=== PATIENT | male | born 1940 | race African-American/Black ===

== ENCOUNTER 2019-10-04 22:20 | Inpatient (IN) | payer MEDICARE, BC, SELFPAY ==
[2019-10-04] VITALS (7 sets, daily range): BP systolic 144–192; BP diastolic 82–113; PULSE 80–97; RESP 19–27; TEMP 36.7; O2SAT 95–98
--- NOTE | ~2019-10-04 | XR_ITS ---
EXAMINATION: XR chest 1V portable EXAM DATE: 10/04/2019 23:07 INDICATION: Shortness of air. TECHNIQUE: Portable AP frontal chest x-ray was obtained. There is no prior study for comparison. FINDINGS: There is patchy ill-defined bilateral airspace disease with some more confluent regions of opacity at the left lung base. Acute lung injury from COVID 19 should be inserted/excluded. There may be a small left pleural effusion. The simba catheter has been accessed. Heart is within normal size limits. There is aortic arteriosclerosis. IMPRESSION: Patchy ill-defined bilateral but left basilar predominant airspace disease probably acut e infectious process, edema less likely given normal heart size. Reviewed, dictated and finalized at location G. IMPRESSION: Patchy ill-defined bilateral but left basilar predominant airspace disease probably acute infectious process, edema less likely given normal hear t size.
--- NOTE | ~2019-10-04 | US_ITS ---
EXAMINATION: US carotid duplex BI DATE: 10/05/2019 17:02 INDICATION: Carotid bruit TECHNIQUE: Grayscale, color Doppler, and pulsed Doppler images of the cervical carotid arteries were obtained. The degree of vessel stenosis is placed in one of the following categories: normal, <50%, 5 0-69%, >=70% but less than near-occlusion, near-occlusion, or total occlusion. Note that percent sten osis relative to normal distal artery lumen diameter is indirectly measured from velocity measurement s as described by Meet, et al. Radiology 2003; 229:340-346. COMPARISON: None. FINDINGS: Several premature atrial complexes are noted. RIGHT: The right common carotid artery (CCA) peak systolic velocity (PSV) is 95 cm/s. The right internal car otid artery (ICA) PSV is 131 cm/s. The right ICA end-diastolic velocity (EDV) is 29 cm/s. The right I CA/CCA PSV ratio is 1.4. Grayscale and color Doppler images yield an estimate of 50-69% diameter redu ction from plaque in the ICA. The external carotid artery (ECA) PSV is 141 cm/s. There is antegrade f low in the right vertebral artery. LEFT: The left CCA PSV is 114 cm/s. The left ICA PSV is 121 cm/s. The left ICA EDV is 11 cm/s. The left ICA /CCA PSV ratio is 1.1. Grayscale and color Doppler images yield an estimate of less than 50% diameter reduction from plaque in the ICA. The ECA PSV is 91 cm/s. There is antegrade flow in the left verteb ral artery. IMPRESSION: 1. 50-69% stenosis in the right internal carotid artery. 2. <50% stenosis in the left internal carotid artery. Reviewed, dictated and finalized at location A.
--- NOTE | ~2019-10-04 | CT_ITS ---
EXAMINATION: CTA chest PE protocol DATE: 10/05/2019 19:23 INDICATION: Pulmonary hypertension, elevated troponin, history of colon cancer TECHNIQUE: Computed tomography angiography (CTA) of the chest was performed with 100 mL Omnipaque-350 intravenous contrast timed to evaluate the pulmonary arteries. Coronal maximum intensity projection 3D-reconstructions were created by the technologist. The dose-length product (DLP) was 582.46 mGy-cm. Automated exposure control and iterative reconstruction technique were employed. COMPARISON: None. FINDINGS: The pulmonary arteries are well-opacified. No pulmonary embolism is identified. There are s mall pleural effusions. There is moderate emphysema. Mild dependent atelectasis is noted. No pneumoth orax is seen. There is right hilar lymphadenopathy. Calcified bilateral hilar and mediastinal lymph n odes are consistent with old granulomatous disease. The heart size is normal. A right internal jugula r Port-A-Cath ends with its tip in the distal superior vena cava. Hypoattenuating lesions of the live r measure up to 1.5 cm in the right hepatic lobe, likely cysts. Punctate calcifications in an otherwi se normal spleen likely represent healed granulomatous disease. IMPRESSION: 1. No pulmonary embolism. 2. Small pleural effusions. 3. Right hilar lymphadenopathy, reactive versus metastatic. 4. Moderate emphysema. Reviewed, dictated and finalized at location A.
--- NOTE | 2019-10-04 22:25 | ECG_ITS ---
Measurements Intervals [place] Rate: 98 P: -83 OR: 145 QRS: 18 QRSD: 106 T: 43 QT: 350 QTc: 447 Interpretive Statements SINUS RHYTHM FREQUENT ATRIAL PREMATURE COMPLEXES EARLY PRECORDIAL R/S TRANSITION BASELINE WANDER- V2-V6 BORDERLINE ECG Electronically Signed On 10-05-2019 7:11:39 CDT by Alonso Ascencio D.O.
[2019-10-04 22:39] LABS: PCO2 ABG 36.6 mmHg (35.0-45.0); pH ABG 7.396 (7.350-7.450)
[2019-10-04 22:41] LABS: Base Excess ABG -2.4 mEq/l (+/-2.0); PO2 ABG 41.9 mmHg (80.0-100.0)
[2019-10-04 22:42] LABS: Oxygen Saturation ABG 77.7 % (95.0-100.0)
[2019-10-04 22:43] LABS: Alveolar/Arterial O2 Gradient 490.1 mmHg; Oxyhemoglobin 73.3 % THb (90.0-100.0); Total Hemoglobin 13.6 g/dL (12.0-18.0)
[2019-10-04 22:44] LABS: Carboxyhemoglobin 0.8 % THb (0-2.0); Device OTHER DEVICE; Fractional Inspired Oxygen 80 %; Methemoglobin ABG 0.2 %THb (0-1.5); Modified Allen's Test Pass; PO2 FiO2 Ratio Arterial Blood 0.52 %; Reduced Hemoglobin 25.7 %THb (0-5.0); Site Drawn RIGHT RADIAL
[2019-10-04 23:08] LABS: Basophils Percent Auto 0.2 % (0.2-1.2); Eosinophils Absolute Auto 0.2 K/mm3 (0-0.3); Eosinophils Percent Auto 1.3 % (0-4.4); Hematocrit 39.8 % (42.0-52.0); Hemoglobin 12.7 g/dL (14.0-18.0); Immature Granulocyte Absolute 0.04 K/mm3 (0.00-0.031); Immature Granulocyte Percent A 0.3 % (0-0.5); Lymphocytes Percent Auto 8.3 % (18.3-44.2); Mean Corpuscular HGB Conc 31.9 g/dl (32-36); Mean Corpuscular Hemoglobin 25.8 pg (26-34); Mean Corpuscular Volume 80.7 fl (80-100); Mean Platelet Volume 10.7 fl (7.4-10.4); Monocytes Absolute Auto 0.9 K/mm3 (0.1-0.6); Monocytes Percent Auto 7.3 % (2.6-8.5); Neutrophils Percent Auto 82.6 % (45.5-73.1); Platelet Count Result 200 k/mm3 (150-375); Red Blood Count 4.93 M/mm3 (4.6-6.20); Red Cell Distribution Width 17.9 % (11.5-14.5); White Blood Count 12.1 K/mm3 (4.5-10.0)
[2019-10-04 23:14] LABS: INR 1.3; Prothrombin Time 15.4 Seconds (11.1-14.7)
[2019-10-04 23:15] LABS: Blood Urea Nitrogen 20 mg/dL (9-20); Calcium 9.9 mg/dL (8.4-10.2); Carbon Dioxide 23 mmol/L (22-30); Chloride 109 mmol/L (98-107); Estimated CRCL calculation 45 ml/min; Estimated Glomerular Filt Rate > 60; Glucose 116 mg/dL (75-110); Partial Thromboplastin Time 32.6 SECONDS (22.3-36.8); Potassium 3.9 mmol/L (3.4-5.0); Sodium 141 mmol/L (137-145)
--- NOTE | 2019-10-04 23:18 | ED.SOB ---
HPI - SOB/Dyspnea General Chief Complaint: Shortness of Breath/Dyspnea Stated Complaint: sob History of Present Illness HPI Narrative: Patient is a 79-year-old male who presents the ER with sudden onset shortness of breath. 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 EMS reported coarse rales bilaterally and placed him on a CPAP. Patient feels much better wearing the CPAP. Unsure if he has history of CHF but reports he is on a blood thinner for an irregular heart rate. Denies any recent fevers or chills or sweats. No new cough that she reports. Reports mild edema is lower extremities is chronic. Related Data Home Medications Medication Instructions Recorded Confirmed albuterol sulfate [Ventolin HFA] 2 puff INHALATION DAILY 10/05/19 10/05/19 amlodipine 5 mg PO DAILY 10/05/19 10/05/19 apixaban 5 mg PO DAILY 10/05/19 10/05/19 aspirin 81 mg PO DAILY 10/05/19 10/05/19 cholecalciferol (vitamin D3) 125 mcg PO DAILY 10/05/19 10/05/19 docusate sodium 100 mg PO DAILY 10/05/19 10/05/19 levothyroxine 75 mcg PO DAILY 10/05/19 10/05/19 metoprolol succinate 100 mg PO DAILY 10/05/19 10/05/19 simvastatin 20 mg PO DAILY 10/05/19 10/05/19 tadalafil [Cialis] 5 mg PO DAILY PRN 10/05/19 10/05/19 tiotropium bromide [Spiriva 2 puff INHALATION DAILY 10/05/19 10/05/19 Respimat] Allergies Allergy/AdvReac Type Severity Reaction Status Date / Time No Known Allergies Allergy Verified 10/05/19 00:06 Review of Systems Review of Systems: All systems reviewed & are unremarkable except as noted in HPI and below Constitutional: Constitutional: Denies chills, Denies fever(s) and Denies weakness ENT: Denies nasal congestion and Denies sore throat Cardiovascular: Cardiovascular: Denies chest pain and Denies radiating jaw, neck or arm pain Respiratory: Respiratory: Denies cough, Reports dyspnea and Denies wheezing Gastrointestinal: Gastrointestinal: Denies abdominal pain, Denies nausea and Denies vomiting [facility] Past Medical History Medical History (Updated 10/05/19 @ 04:19 by Ubaldo Tamayo MD) Atrial fibrillation Surgical History Surgical History (Updated 10/05/19 @ 00:45 by Ubaldo Tamayo MD) Port-A-Cath in place Social History Social History (Updated 10/05/19 @ 00:44 by Ubaldo Tamayo MD) Smoking status: Former smoker Gender identity (if verbalized by the patient): Male Exam Narrative: Exam Narrative: GENERAL: Well-appearing wearing CPAP, well-nourished, and in no acute distress. HEAD: Normocephalic, atraumatic. ENT: Mucous membranes moist. CHEST: Clear to auscultation. No respiratory distress. HEART: Regular rate and rhythm. Normal peripheral pulses. ABDOMEN: Soft, nontender, nondistended. EXTREMITIES: Normal range of motion. 1+ edema. SKIN: Warm, dry, no rash. NEURO: Alert and oriented x3. PSYCH: Normal mood and affect. Course Course Emergency Course: Patient is a poor historian. He does not know his medical history. He was hospitalized at [facility] last year, we will request records. Patient has been weaned off his BiPAP is now on nasal cannula O2 breathing well. Vital Signs Vital signs: Vital Signs Temperature 98.1 F 10/04/19 22:16 Pulse Rate 89 10/04/19 22:16 Respiratory Rate 19 10/04/19 22:16 Blood Pressure 192/113 H 10/04/19 22:16 Pulse Oximetry 95 10/04/19 22:16 Temperature 99.2 F 10/05/19 03:15 Pulse Rate 80 10/05/19 03:15 Respiratory Rate 26 H 10/05/19 03:15 Blood Pressure 160/74 H 10/05/19 03:15 Pulse Oximetry 98 10/05/19 03:15 MDM - SOB/Dyspnea Lab Data Result diagrams: 10/04/19 22:25 10/04/19 22:25 Labs: Lab Results 10/04/19 10/04/19 10/04/19 Range/Units 22:25 22:25 22:25 WBC 12.1 H (4.5-10.0) K/mm3 RBC 4.93 (4.6-6.20) M/mm3 Hgb 12.7 L (14.0-18.0) g/dL Hct 39.8 L (42.0-52.0) % MCV 80.7 (80-100) fl MCH 25.8 L (26-34) p
[2019-10-04 23:28] LABS: NT Pro B Type Natriuretic Pept 1320 PG/ML (5-100); Troponin I 0.025 ng/mL (0.000-0.034)
[2019-10-05] VITALS (20 sets, daily range): BP systolic 123–160; BP diastolic 60–109; PULSE 57–95; RESP 14–26; TEMP 36–37.3; O2SAT 89–100; BMI 27.7
--- NOTE | 2019-10-05 | ECHO_ITS ---
Patient Info Name: Fidencio Trevizo Age: 79 years : 1940 Gender: Male Ht: 71 in Wt: 201 lbs BSA: 2.15 m2 HR: 67 bpm BP: 124 / 74 mmHg Technical Quality: Good Exam Date: 10/05/2019 1:52 PM Exam Location: [facility] Pulmonary Patient Status: Inpatient Admit Date: 10/05/2019 Staff Ordering Physician: Douglas Vanegas MD Hotel Security Officer: Avni Araya, CAMPBELL, RT Attending Provider: Douglas Vanegas MD Exam Type: CA echo doppler color flow Study Info Indications I50.9 - Heart failure, unspecified Complete two-dimensional, color flow and Doppler transthoracic echocardiogram is performed. Summary 1. Left ventricular chamber dimension is normal. 2. Left ventricular systolic function is normal, estimated at 65-70%. 3. The left ventricular diastolic function is abnormal. 4. E/e' 15 is elevated. 5. There is moderate aortic valve sclerosis. 6. There is moderate aortic valve stenosis with a peak velocity of 247 cm/s, mean gradient of 14 mmHg, and aortic valve area of 1.8 cm2. 7. The mitral valve has mildly thickened leaflets. 8. There is mild mitral valve regurgitation. 9. There is mild tricuspid valve regurgitation. 10. Severe pulmonary hypertension, estimated pulmonary arterial systolic pressure is 63 mmHg. 11. There is mild pulmonic regurgitation. Left Ventricle E/e' 15 is elevated. Left ventricular chamber dimension is normal. Left ventricular systolic function is normal, estimated at 65-70%. The left ventricular diastolic function is abnormal. Right Ventricle Right ventricular chamber dimension is normal. Right ventricular systolic function is normal. Left Atria Left atrial chamber dimension is normal. Right Atria Right atrial chamber dimension is normal. Aortic Valve The aortic valve is probable trileaflet. There is moderate aortic valve sclerosis. There is mild aortic valve stenosis with a peak velocity of 247 cm/s, mean gradient of 14 mmHg, and aortic valve area of 1.8 cm2. There is no aortic valve regurgitation. Pulmonic Valve There is mild pulmonic regurgitation. Mitral Valve The mitral valve has mildly thickened leaflets. There is no mitral valve stenosis. There is mild mitral valve regurgitation. Tricuspid Valve There is mild tricuspid valve regurgitation. Severe pulmonary hypertension, estimated pulmonary arterial systolic pressure is 63 mmHg. Pericardium/Pleural There is no pericardial effusion. Inferior Vena Cava Normal inferior vena cava with >50% collapse upon inspiration consistent with normal right atrial pressure, 5 mmHg. Aorta The aortic root size at the sinus of Valsalva is normal. Left Ventricular Outflow Tract Name Value Normal LVOT 2D LVOT Diameter 2.2 cm LVOT Doppler LVOT Peak Gradient 3 mmHg LVOT Mean Gradient 2 mmHg LVOT VTI 25 cm LVOT VTI/AV VTI Ratio 0.4 LVOT Stroke Volume 100 ml LVOT CO 4.9 l/min LVOT CI 2.3 l/min/m2 Mi
--- NOTE | 2019-10-05 03:30 | ADMGEN ---
This patient, Fidencio Trevizo, was admitted to Intensive Care Unit-2. Patient/family oriented to hospital policies and general routines including ID bracelet, bed and alarms, visiting hours, pain management, procedures, bathroom and other care routines, personal items, smoking policy, room service/diet, and visiting hours. Valuables list has been completed. Information on how to activate the Rapid Response Team has been discussed. Patient/Family are encouraged to report perceived risks to care and to ask questions if they do not understand what they are told or what they should do.
--- NOTE | 2019-10-05 03:46 | PC.NURSE ---
DOWNTIME LATE ENTRY; AT 0140 1G ROCEPHIN IVPB HUNG AT 0140, 50 ML INFUSION COMPLETED AT 0205.
[2019-10-05 05:23] LABS: Hematocrit 34.6 % (42.0-52.0); Hemoglobin 11.1 g/dL (14.0-18.0); Mean Corpuscular HGB Conc 32.1 g/dl (32-36); Mean Corpuscular Hemoglobin 25.5 pg (26-34); Mean Corpuscular Volume 79.4 fl (80-100); Mean Platelet Volume 10.1 fl (7.4-10.4); Platelet Count Result 177 k/mm3 (150-375); Red Blood Count 4.36 M/mm3 (4.6-6.20); Red Cell Distribution Width 17.5 % (11.5-14.5); White Blood Count 9.5 K/mm3 (4.5-10.0)
[2019-10-05 05:56] LABS: Troponin I 0.055 ng/mL (0.000-0.034)
--- NOTE | 2019-10-05 07:48 | PM.IMHP ---
H&P: HPI History of Present Illness Chief complaint: sob Narrative: Fidencio Trevizo is a 79 year old male with hx of metastatic colon cancer and AFib who presents the ER with sudden onset shortness of breath. Patient was at work in the [employer] when he developed diarrhea around 8:00 p.m. the night prior to admission. Had 3-4 bowel movements over the next hour. No melena or hematochezia. No abdominal pain. No nausea or vomiting. He became more short of breath walking to and from the bathroom. This is not uncommon for him overall any does use albuterol inhaler chronically. He normally uses the albuterol inhaler 2 puffs in the morning but has increased the use over the past 3-4 days. He denies any fever or chills. He has a chronic dry cough but seems to be unsure if this has worsened over the past few days. He has chronic left lower extremity edema and has to wear support hose and other compression devices to control the edema. No edema noted in the right leg. He denies any chest pain. He does state that a co-worker tested positive for COVID. He was tested at work for COVID and was negative on September 30. Patient was sent home early last night but when walking to his car became more short of breath and EMS was called. On EMS arrival patient's pulse ox was in the 80s. Pulse was 90 as blood pressure was 190/100. Patient placed on CPAP and brought to the emergency room for evaluation. In the emergency room, patient was hypertensive at 192/113. Chest x-ray showed patchy ill-defined bilateral prominently left airspace disease. White count was elevated 12,000. ABG noted but probably a mixed venous sample. Second troponin has elevated to 0.055. BNP was 1320. Patient does not have a history of CHF. COVID testing ordered. EKG showing normal sinus rhythm and frequent PACs. Patient was treated with Rocephin and azithromycin. He was admitted for further care. 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 Patient found to have pelvic and lung recurrence in 2016 treated with Xeloda chemotherapy from October 2015 to November 2015. He has had pill 8 of chemotherapy off and on with FOLFIRI from 03/02/2016. Had a treatment break in July [address] scan in September of 2016 showing progression thus he was back on FOLFIRI in September 2016. Chemotherapy break on September 2018 due to personal preference. CEA level 1.7 in April 2019 Review of Systems Review of Systems: All systems reviewed & are unremarkable except as noted in HPI and below PMFSH Past Medical History Medical History (Updated 10/06/19 @ 12:42 by Douglas Vanegas MD) Atrial fibrillation Carotid stenosis COPD (chronic obstructive pulmonary disease) Dyslipidemia Essential hypertension, benign GERD (gastroesophageal reflux disease) Hypothyroidism Malignant neoplasm of cecum Moderate aortic stenosis Pulmonary hypertension Vitamin B12 deficiency Vitamin D deficiency Surgical History Surgical History (Updated 10/05/19 @ 09:16 by Douglas Vanegas MD) History of bowel resection Port-A-Cath in place Family History Family History Father Cancer Mother Cancer Sibling Kidney disease Social History Social History (Updated 10/05/19 @ 09:17 by Douglas Vanegas MD) Social History: Lives at home with his and grandson. Smoked a pack a day for about 35 years but quit 27 years ago. History of heavy alcohol use but quit 1992. History of cocaine and marijuana use but quit in 1992. No history of IV drug use. He is a full code. He nominates his to be the individual would make medical decisions for him if he is unable. Smoking status: Former smoker Alcohol intake: former Substance use: former Substance use type: crack/cocaine Last use: 1991 Gender identity (if verbalized by the patient): Male Spiritual care concerns: No Meds Home Medications
[2019-10-05 10:08] LABS: Blood Urea Nitrogen 16 mg/dL (9-20); Calcium 9.4 mg/dL (8.4-10.2); Carbon Dioxide 25 mmol/L (22-30); Chloride 109 mmol/L (98-107); Estimated CRCL calculation 58 ml/min; Estimated Glomerular Filt Rate > 60; Glucose 92 mg/dL (75-110); Potassium 3.7 mmol/L (3.4-5.0); Sodium 140 mmol/L (137-145)
[2019-10-05] MEDS: METOPROLOL SUCCINATE EXT REL 100 MG TABCR PO (11:05)
[2019-10-05] MEDS: APIXABAN 5 MG TABLET PO (11:06)
[2019-10-05] MEDS: CHOLECALCIFEROL 1,000 UNIT TABLET 5000 UNITS PO (11:06)
[2019-10-05] MEDS: SIMVASTATIN 20 MG TABLET PO (11:06)
[2019-10-05] MEDS: ASPIRIN 81 MG CHEWABLE TABLET PO (11:06)
[2019-10-05] MEDS: LEVOTHYROXINE SODIUM 75 MCG TABLET PO (11:06)
[2019-10-05] MEDS: AMLODIPINE BESYLATE 5 MG TABLET PO (11:06)
[2019-10-05 12:16] LABS: Troponin I 0.036 ng/mL (0.000-0.034)
[2019-10-05 12:49] LABS: SARS-CoV-2 RNA PCR Negative
[2019-10-05] MEDS: ALBUTEROL SULFATE (*SP) AEROSOL 1 PUFF 2 PUFF INHALATION ×2 (12:52→16:30)
[2019-10-05] MEDS: CENTRAL LINE FLUSH 10 ML IV PUSH ×2 (13:49→21:09)
--- NOTE | 2019-10-05 16:23 | PC.NURSE ---
This patient, Fidencio Trevizo, was transferred to [ 204] on 10/05/19 at 1623. Personal belongings sent with patient. Belongings list checked and signed with receiving [ ]. Report given to [ MANUEL Toney]. Appropriate documentation sent with patient.
--- NOTE | 2019-10-05 16:56 | PC.NURSE ---
This patient, Fidencio Trevizo, was received from ICU-2 on 10/05/19 at 1656. Personal belongings list checked and signed. Patient/family oriented to unit policies and routines
[2019-10-06] VITALS (10 sets, daily range): BP systolic 116–153; BP diastolic 67–77; PULSE 60–83; RESP 20; TEMP 36.1–36.3; O2SAT 94–97
[2019-10-06] MEDS: LEVOTHYROXINE SODIUM 75 MCG TABLET PO (06:03)
[2019-10-06] MEDS: CENTRAL LINE FLUSH 10 ML IV PUSH (06:03)
[2019-10-06 06:25] LABS: Hematocrit 32.9 % (42.0-52.0); Hemoglobin 10.8 g/dL (14.0-18.0); Mean Corpuscular HGB Conc 32.8 g/dl (32-36); Mean Corpuscular Volume 79.3 fl (80-100); Mean Platelet Volume 9.9 fl (7.4-10.4); Platelet Count Result 173 k/mm3 (150-375); Red Blood Count 4.15 M/mm3 (4.6-6.20); Red Cell Distribution Width 17.7 % (11.5-14.5); White Blood Count 7.9 K/mm3 (4.5-10.0)
[2019-10-06 06:35] LABS: Alanine Aminotransferase 17 U/L (4-50); Albumin Level 3.8 g/dL (3.5-5.1); Alkaline Phosphatase 136 U/L (38-126); Aspartate Amino Transferase 38 U/L (17-59); Bilirubin,Total 0.5 mg/dL (0.2-1.3); Blood Urea Nitrogen 16 mg/dL (9-20); Carbon Dioxide 25 mmol/L (22-30); Chloride 109 mmol/L (98-107); Estimated CRCL calculation 49 ml/min; Estimated Glomerular Filt Rate > 60; Glucose 93 mg/dL (75-110); Potassium 3.8 mmol/L (3.4-5.0); Sodium 139 mmol/L (137-145)
[2019-10-06] MEDS: METOPROLOL SUCCINATE EXT REL 100 MG TABCR PO (08:40)
[2019-10-06] MEDS: APIXABAN 5 MG TABLET PO (08:40)
[2019-10-06] MEDS: ASPIRIN 81 MG CHEWABLE TABLET PO (08:40)
[2019-10-06] MEDS: AMLODIPINE BESYLATE 5 MG TABLET PO (08:40)
[2019-10-06] MEDS: SIMVASTATIN 20 MG TABLET PO (08:40)
[2019-10-06] MEDS: CHOLECALCIFEROL 1,000 UNIT TABLET 5000 UNITS PO (08:40)
[2019-10-06] MEDS: ALBUTEROL SULFATE (*SP) AEROSOL 1 PUFF 2 PUFF INHALATION (08:41)
--- NOTE | 2019-10-06 12:29 | PM.DS ---
DS: Diagnosis Discharge Diagnosis (1) Acute respiratory failure: Code(s): J96.00 - Acute respiratory failure, unspecified whether with hypoxia or hypercapnia Status: Acute Assessment and Plan: Patient with respiratory failure with hypoxic in the field by EMS and CPAP started. ABG 7.39/36/42 but felt to be a mixed venous gas. Patient has a clinical improvement. He was weaned to room air a few hours after admission. SARS-CoV-2 PCR Negative. Echo showing severe pulmonary HTN and moderate aortic stenosis. LV diastolic dysfunction, LV systolic function normal with EF 65-70% BNP 1320; Trop = 0.025 -> 0.055 -> 0.036 Apnea link positive with AHI 18 and RI 18.5. JOHN could be the etiology of his pulm HTN CTA Chest negative for PE but shows moderate emphysema and right hilar adenopathy. Possibly bronchospasm (with atelectasis to explain CXR findings) resulting in his acute respiratory symptoms. (2) Pneumonia: Code(s): J18.9 - Pneumonia, unspecified organism Status: Acute Assessment and Plan: Chest x-ray showed patchy ill-defined bilateral left greater than right airspace disease. Patient has had increasing shortness of breath with a past few days worse just prior to admission. No other evidence of pneumonia. Treated with azithromycin Rocephin. Blood cultures negative to date. Diarrhea prior to admission but has resolved. CTA showing no evidence of PNA so abx stopped. PNA ruled out (3) Elevated troponin: Code(s): R79.89 - Other specified abnormal findings of blood chemistry Status: Acute Assessment and Plan: No complaints of chest pain. Patient was slight elevation of troponin on 2nd value. EKG showing no acute changes. Elevated Trop could be related to the elevated blood pressure (192/113) or from the acute respiratory failure. Carotid US showing 50-69% stenosis of the right internal carotid.artery. Aspirin continued. We continued metoprolol and simvastatin. Echocardiogram as mentioned above. (4) Suspected COVID-19 virus infection: Code(s): Z20.828 - Contact with and (suspected) exposure to other viral communicable diseases Status: Acute Assessment and Plan: SARS CoV-2 PCR negative. (5) Atrial fibrillation: Code(s): I48.91 - Unspecified atrial fibrillation Status: Acute Assessment and Plan: Patient appears to be in a sinus rhythm with PACs. Tele showing occasional brief episodes of probable AFlutter. Patient is on apixaban which was continued. We continued metoprolol for rate maintenance. (6) COPD (chronic obstructive pulmonary disease): Qualifiers: COPD type: unspecified COPD Qualified Code(s): J44.9 - Chronic obstructive pulmonary disease, unspecified Code(s): J44.9 - Chronic obstructive pulmonary disease, unspecified Status: Acute Assessment and Plan: No wheezing. CTA showing moderate emphysema. We continued his albuterol. Patient was easily weaned to room air. (7) Essential hypertension, benign: Code(s): I10 - Essential (primary) hypertension Status: Acute Assessment and Plan: Blood pressure elevated on admission at 192/113 but has normalized since admission. Most likely stress response. We continued his current home medications. (8) Malignant neoplasm of cecum: Code(s): C18.0 - Malignant neoplasm of cecum Status: Acute Assessment and Plan: History is detailed in H&P. Details were provided by records obtained from [facility]. (9) Moderate aortic stenosis: Code(s): I35.0 - Nonrheumatic aortic (valve) stenosis Status: Acute Assessment and Plan: As above. Will need follow-up as an outpatient. (10) Carotid stenosis: Code(s): I65.29 - Occlusion and stenosis of unspecified carotid artery Status: Acute Assessment and Plan: As above. Will need follow-up as an outpatient.
[2019-10-08 17:14] LABS: Legionella pneumophila Ag Ur Not Detected (Not Detected)
--- NOTE | 2019-10-10 09:52 | PC.NURSE ---
Legionella Ag is negative. Dr. Guilherme joiner.
== END 2019-10-06 14:13 | disposition home or self-care (01) | DRG 189 ==
LOC: ANHED 23:45 → ANHICU 10-05 04:19 → ANHIMU 10-06 12:49 → ANHICU 10-10 14:53
PROVIDERS: Internal Medicine; Admitting Provider Internal Medicine; Emergency Provider Emergency Medicine; PCP Family Medicine; Visit Provider Internal Medicine
DX: J96.00 Acute respiratory failure, unspecified whether with hypoxia or hypercapnia (principal); C18.9 Malignant neoplasm of colon, unspecified; Z03.818 Encounter for observation for suspected exposure to other biological agents ruled out; R79.89 Other specified abnormal findings of blood chemistry; I48.91 Unspecified atrial fibrillation; J44.9 Chronic obstructive pulmonary disease, unspecified; I10 Essential (primary) hypertension; I35.0 Nonrheumatic aortic (valve) stenosis; I65.29 Occlusion and stenosis of unspecified carotid artery; I27.20 Pulmonary hypertension, unspecified; K21.9 Gastro-esophageal reflux disease without esophagitis; E03.9 Hypothyroidism, unspecified; E78.5 Hyperlipidemia, unspecified; E53.8 Deficiency of other specified B group vitamins; E55.9 Vitamin D deficiency, unspecified; Z87.891 Personal history of nicotine dependence
CPT/HCPCS: 36415; 36600; 71045; 71275; 80048; 80053; 82375; 82805; 83050; 83880; 84443; 84484; 85025; 85027; 85610; 85730; 87040; 87449; 87635; 93005; 93306; 93880; 94002; 94640; 94762; 96365; 99199; 99285; A9270; J0456; J0696; J1642; Q9967; U0003